=== PATIENT | male | born 1950 | race Hispanic/Latino ===

== ENCOUNTER 2023-09-14 10:40 | Emergency (ER) | payer OTHER ==
[2023-09-14] MEDS ORDERED: CEPHALEXIN 250 MG CAP ONE (11:24)
[2023-09-14] MEDS ORDERED: CEFAZOLIN SODIUM 1 GM/VIAL ONE (11:24)
[2023-09-14] MEDS ORDERED: LIDOCAINE 2% W/EPI 1:200,000 MPF 20 ML VIAL IM ONE (11:24)
[2023-09-14] MEDS ORDERED: SMZ./TMP. 800/160 MG TABLET ONE (11:24)
[2023-09-14] MEDS ORDERED: NA CHLORIDE 0.9% 1,000 ML ONE (11:25)
[2023-09-14 11:36] LABS: Absolute Eosinophils 0.1 K/uL (0-0.5); Absolute Lymphocytes (CBC) 1.7 K/uL (0.7-4.9); Absolute Monocytes 0.7 K/uL (0.1-1.3); Basophils % 0.5 % (0-1.3); Eosinophils % 0.8 % (0-4.4); Hematocrit 39.1 % (39.6-49.0); Hemoglobin 13.1 g/dL (13.6-17.9); Lymphocytes % 17.6 % (15.3-44.8); MCH 28.6 pg (27.0-35.0); MCHC 33.6 g/dL (32.0-36.0); MCV 85.2 fL (80-100); MPV 7.5 fL (7.6-11.3); Monocytes % 7.2 % (3.3-12.3); Neutrophils % 73.9 % (41.7-73.7); Platelets 181 thou/uL (152-406); RBC Red Blood Cell Count 4.59 M/uL (4.33-5.43); Red Cell Distribution Width 14.9 % (12.1-15.2)
[2023-09-14 11:41] LABS: PT Prothrombin Time 11.4 SECONDS (9.5-12.5); Protime INR 1.04
[2023-09-14 11:46] LABS: Specific Gravity 1.029 (1.005-1.030); Sqamous Epithelial <5 /HPF (None Seen); Transitional Epithelial <5 /HPF (None Seen); Urine Bacteria None Seen /HPF (<20); Urine Bilirubin NEGATIVE (Negative); Urine Blood Trace (Negative); Urine Clarity Clear (Clear); Urine Color Yellow (Yellow); Urine Culture Reflex Order NOT NEEDED; Urine Glucose NEGATIVE (Negative); Urine Ketones NEGATIVE (Negative); Urine Microscopic Reflex YN ORDER UMIC; Urine Mucus Slight /HPF (None Seen); Urine Nitrite NEGATIVE (Negative); Urine Protein 1+ (Negative); Urine Sperm Present (None Seen); Urine Urobilinogen Normal (Normal); Urine WBC <5 /HPF (<5); Urine pH 7.5 (5.0-7.0)
[2023-09-14 12:36] LABS: Sodium Level 136 mEq/L (136-145)
[2023-09-14 12:37] LABS: ALT/SGPT 29 U/L (16-61); AST/SGOT 16 U/L (15-37); BUN Blood Urea Nitrogen 18 mg/dL (7-18); Bicarbonate 29 mEq/L (21-32); Glomerular Filtration Rate 92 ml/min (=/>90); Glucose Level 108 mg/dL (74-106); Potassium 3.7 mEq/L (3.5-5.1)
[2023-09-14 12:38] LABS: Albumin 3.5 g/dL (3.4-5.0); Albumin/Globulin Ratio 0.9 (1.1-1.8); Bilirubin Direct < 0.1 mg/dL (0-0.2); Bilirubin Indirect, Calculated ND mg/dL (0.2-0.8); Bilirubin Total 0.5 mg/dL (0.2-1.0); Globulin 3.7 g/dL (2.3-3.5); Protein, Total 7.2 g/dL (6.4-8.2)
[2023-09-14 12:39] LABS: Alkaline Phosphatase 74 U/L (45-117)
[2023-09-14 12:46] LABS: Anion Gap 8.7 mEq/L (5.0-15.0)
[2023-09-14 12:47] LABS: Lipase 37 U/L (13-75); Magnesium 2.2; NT PRO-BNP 95 pg/mL (<125); Troponin High Sensitivity < 3.0 (<58.9)
--- NOTE | 2023-09-14 12:56 | RAD REPORT ---
[facility]21 [facility] CLINICAL HISTORY: COUGH COMPARISON: Chest Pa And Lat (2 Views) dated 04/23/2022 TECHNIQUE: Portable AP view of the chest. FINDINGS: Decreased inspiratory effort limits evaluation. Crowding of the central vascular markings which may relate to decreased inspiration as well. Hazy left basilar opacity with blunting of the lef t costophrenic angle. No pneumothorax or sizable effusion. The cardiomediastinal contours are unrema rkable. IMPRESSION: Hazy left basilar airspace opacity with blunting of the left costophrenic angle, which m ay relate to atelectasis or small focus of pneumonitis.
--- NOTE | 2023-09-14 13:18 | EDPHYS ---
Physician Documentation [facility] Name: Filiberto Marion Age: 72 yrs Sex: Male : 1950 Arrival Date: 09/14/2023 Time: 10:40 Bed 3 Private MD: ED Physician Donny Mitchell HPI: 09/13 11:21 This 72 yrs old Male presents to ER via EMS with complaints of Abscess. miguel angel 11:21 The patient presents with an abscess of the right gluteus katrina, The patient presents miguel angel with cellulitis of the right gluteus katrina. Description: The affected area is moderate sized, localized, erythematous. Onset: The symptoms/episode began/occurred 6 day(s) ago. Possible cause(s): unknown. Associated signs and symptoms: The patient has no apparent associated signs or symptoms. Severity of symptoms: At their worst the symptoms were moderate, in the emergency department the symptoms have resolved. The patient has not experienced similar symptoms in the past. Historical: - Allergies: 10:46 No Known Allergies; ld1 - PMHx: 10:46 Hypercholesterolemia; BPH; ld1 - Immunization history:: Adult Immunizations up to date. - Infectious Disease History:: Denies. - Social history:: Smoking status: Patient denies any tobacco usage or history of. - Family history:: not pertinent. ROS: 11:21 Constitutional: Negative for fever, chills, and weight loss, Eyes: Negative for injury, miguel angel pain, redness, and discharge, ENT: Negative for injury, pain, and discharge, Neck: Negative for injury, pain, and swelling, Cardiovascular: Negative for chest pain, palpitations, and edema, Respiratory: Negative for shortness of breath, cough, wheezing, and pleuritic chest pain, Abdomen/GI: Negative for abdominal pain, nausea, vomiting, diarrhea, and constipation, Back: Negative for injury and pain, : Negative for injury, bleeding, discharge, and swelling, Neuro: Negative for headache, weakness, numbness, tingling, and seizure, Psych: Negative for depression, anxiety, suicide ideation, homicidal ideation, and hallucinations, Allergy/Immunology: Negative for hives, rash, and allergies, Endocrine: Negative for neck swelling, polydipsia, polyuria, polyphagia, and marked weight changes, Hematologic/Lymphatic: Negative for swollen nodes, abnormal bleeding, and unusual bruising, 11:21 MS/extremity: Positive for pain, swelling, tenderness, of the right gluteus katrina, 11:21 Skin: Positive for abscess, of the buttocks, Exam: 11:21 Constitutional: This is a well developed, well nourished patient who is awake, alert, miguel angel and in no acute distress. Head/Face: Normocephalic, atraumatic. Eyes: Pupils equal round and reactive to light, extra-ocular motions intact. Lids and lashes normal. Conjunctiva and sclera are non-icteric and not injected. Cornea within normal limits. Periorbital areas with no swelling, redness, or edema. ENT: Nares patent. No nasal discharge, no septal abnormalities noted. Tympanic membranes are normal and external auditory canals are clear. Oropharynx with no redness, swelling, or masses, exudates, or evidence of obstruction, uvula midline. Mucous membranes moist. Neck: Trachea midline, no thyromegaly or masses palpated, and no cervical lymphadenopathy. Supple, full range of motion without nuchal rigidity, or vertebral point tenderness. No Meningismus. Chest/axilla: Normal chest wall appearance and motion. Nontender with no deformity. No lesions are appreciated. Cardiovascular: Regular rate and rhythm with a normal S1 and S2. No gallops, murmurs, or rubs. Normal PMI, no JVD. No pulse deficits. Respiratory: Lungs have equal breath sounds bilaterally, clear to auscultation and percussion. No rales, rhonchi or wheezes noted. No increased work of breathing, no retractions or nasal flaring. Abdomen/GI: Soft, non-tender, with normal bowel sounds. No distension or tympany. No guarding or rebound. No evidence of tenderness throughout. Back: No spinal tenderness. No costovertebral tenderness. Full range of motion. Male : Normal genitalia with no discharge or lesions. MS/ Extremity: Pulses equal, no cyanosis. Neurovascular intact. Full, normal range of motion. Neuro: Awake and alert, GCS 15, oriented to person, place, time, and situation. Cranial nerves II-XII grossly intact. Motor strength 5/5 in all extremities. Sensory grossly intact. Cerebellar exam normal. Normal gait. Psych: Awake, alert, with orientation to person, place and time. Behavior, mood, and affect are within normal limits. 11:21 Skin: abscess, that is moderate sized, of the right gluteus katrina, cellulitis, that is moderate, induration, that is moderate is noted, Vital Signs: 10:47 BP 148 / 77; Pulse 77; Resp 18; Temp 98.4(TE); Pulse Ox 96% on R/A; Weight 82.55 kg; ld1 Height 5 ft. 9 in. ; Pain 9/10; 11:37 BP 140 / 72; Pulse 72; Resp 18; Pulse Ox 97% on R/A; ld1 12:13 BP 133 / 64; Pulse 59; Resp 18; Pulse Ox 98% on R/A; ld1 13:35 BP 134 / 72; Pulse 61; Resp 18; Pulse Ox 99% on R/A; ld1 10:47 Body Mass Index 26.88 (82.55 kg, 175.26 cm) ld1 10:47 Pain Scale: Adult ld1 [place] Coma Score: 11:21 Eye Response: spontaneous(4). Motor Response: obeys commands(6). Verbal Response: miguel angel oriented(5). Total: 15. MDM: 10:48 Patient medically screened. miguel angel 11:23 Differential diagnosis: abscess, cellulitis. Data reviewed: vital signs, nurses notes, [facility] result[facility]), EKG, radiologic studies, plain films. Consideration of Admission/Observation Escalation of care including admission/observation considered. I considered the following discharge prescriptions or medication management in the emergency department Medications were administered in the Emergency Department. See MAR. Test considered but Not performed: Ultrasound NO USG ABSCESS. 09/13 11:08 Order name: Basic Metabolic Panel; Complete Time: 12:48 [facility] 09/13 11:08 Order name: CBC with Diff; Complete Time: 12:48 [facility] 09/13 11:08 Order name: LFT's; Complete Time: 12:48 [facility] 09/13 11:08 Order name: Magnesium; Complete Time: 12:48 [facility] 09/13 11:08 Order name: NT PRO-BNP; Complete Time: 12:48 [facility] 09/13 11:08 Order name: PT-INR; Complete Time: 12:48 [facility] 09/13 11:08 Order name: Troponin HS; Complete Time: 12:48 [facility] 09/13 11:08 Order name: Lipase; Complete Time: 12:48 [facility] 09/13 11:08 Order name: Urinalysis w/ reflexes; Complete Time: 12:48 [facility] 09/13 11:19 Order name: Wound Culture [facility] 09/13 11:08 Order name: XRAY Chest (1 view); Complete Time: 13:27 [facility] 09/13 11:08 Order name: Cardiac monitoring; Complete Time: 11:37 [facility] 09/13 11:08 Order name: EKG - Nurse/Tech; Complete Time: 13:26 [facility] 09/13 11:08 Order name: IV Saline Lock; Complete Time: 11:16 [facility] 09/13 11:08 Order name: Labs collected and sent; Complete Time: 11:37 [facility] 09/13 11:08 Order name: O2 Per Protocol; Complete Time: 11:16 [facility] 09/13 11:08 Order name: O2 Sat Monitoring; Complete Time: 11:16 [facility] 09/13 11:19 Order name: Dressing - Wound; Complete Time: 11:36 [facility] 09/13 11:19 Order name: Gloves, Sterile; Complete Time: 11:36 [facility] 09/13 11:19 Order name: Setup Suture Tray; Complete Time: 11:36 [facility] 09/13 13:13 Order name: Wound dressing; Complete Time: 13:26 [facility] Administered Medications: 11:36 Drug: Trimethoprim-Sulfamethoxazole PO (160 mg-800 mg (DS) 1 tablet PO once Route: PO; ld1 11:36 Drug: Cephalexin PO 500 mg PO once Route: PO; ld1 11:36 Drug: ceFAZolin IVPB 1 grams 50 ml IVPB once over 30 mins Volume: 50 ml; Route: IVPB; ld1 Infused Over: 30 mins; Site: left antecubital; 11:37 Drug: NS 0.9% IV 1000 ml IV at 125 ml/hr continuous Route: IV; Rate: 125 ml/hr; Site: ld1 left antecubital; 12:50 Drug: Lidocaine-Epinephrine Infiltration -1%: (1:100,000) 20 ml 20 ml Infiltration ld1 once; to bedside {Note: Administered by Dr. Mitchell.} Volume: 20 ml; Route: Infiltration; 13:25 Drug: Mupirocin Topical Ointment 2 % 1 application Topical once Route: Topical; Site: ld1 affected area; Disposition Summary: 09/14/23 13:18 Discharge Ordered Notes: Location: Home miguel angel Problem: new miguel angel Symptoms: have improved miguel angel Condition: Stable miguel angel Diagnosis - Cutaneous abscess of buttock miguel angel - Cellulitis of buttock miguel angel Followup: miguel angel - With: Private Physician - When: 2 - 3 days - Reason: Recheck today's complaints, Continuance of care, Re-evaluation by your physician Followup: miguel angel - With: Mikey Lorenzana MD - When: 2 - 3 days - Reason: Recheck today's complaints, Continuance of care, Re-evaluation by your physician Discharge Instructions: - Discharge Summary Sheet miguel angel - Skin Abscess miguel angel - Cellulitis, Adult miguel angel - Incision and Drainage miguel angel - Skin Abscess, [id number] miguel angel - Cellulitis, Adult, [id number] miguel angel - Incision and Drainage, Care After miguel angel Forms: - Medication Reconciliation Form [facility] - Antibiotic Education miguel angel - Prescription Opioid Use [facility] - Patient Portal Instructions [facility] - Leadership Thank You Letter [facility] Prescriptions: - Centany 2 % Topical ointment - apply 1 application TOPICAL route 3 times per day; 30 gram tube; Refills: 0, [facility] Product Selection Permitted - Cephalexin 500 mg Oral Capsule - take 1 capsule ORAL route every 6 hours for 10 days; 40 capsule; Refills: 0, [facility] Product Selection Permitted - Bactrim DS 800-160 mg Oral Tablet - take 1 tablet ORAL route every 12 hours for 10 days; 20 tablet; Refills: 0, [facility] Product Selection Permitted Signatures: Dispatcher [employer] EDDonny Godinez MD MD cha Attema, Lee, ACTIVE DIRECTORY ADMINISTRATOR-C ACTIVE DIRECTORY ADMINISTRATOR-Cla1 Yarely Dick RN RN ld1 Corrections: (The following items were deleted from the chart) 11: 11:09 BASIC METABOLIC PANEL+C.LAB.BRZ ordered. EDMS EDMS 11: 11:09 CBC+H.LAB.BRZ ordered. EDMS EDMS 11: 11:09 HEPATIC FUNCTION+C.LAB.BRZ ordered. EDMS EDMS 11: 11:09 MAGNESIUM+C.LAB.BRZ ordered. EDMS EDMS 11: 11:09 PROBNP+C.LAB.BRZ ordered. EDMS EDMS 11: 11:09 PROTIME (+INR)+COAG.LAB.BRZ ordered. EDMS EDMS 11: 11:09 Troponin High Sensitivity+C.LAB.BRZ ordered. EDMS EDMS 11:09 11:09 LIPASE+C.LAB.BRZ ordered. EDMS EDMS : 11: Urinalysis+U.LAB.BRZ ordered. EDMS EDMS
--- NOTE | 2023-09-14 13:18 | ER ---
Nurse's Notes [facility] Name: Filiberto Marion Age: 72 yrs Sex: Male : 1950 Arrival Date: 09/14/2023 Time: 10:40 Bed 3 Private MD: Diagnosis: Cutaneous abscess of buttock;Cellulitis of buttock Presentation: 09/13 10:47 Chief complaint: EMS states: toned out to patient home for abscess to buttocks X 7 ld1 days. Coronavirus screen: At this time, the client does not indicate any symptoms associated with coronavirus-19. Ebola Screen: No symptoms or risks identified at this time. Initial Sepsis Screen: Does the patient meet any 2 criteria? No. Patient's initial sepsis screen is negative. Does the patient have a suspected source of infection? No. Patient's initial sepsis screen is negative. Risk Assessment: Do you want to hurt yourself or someone else? Patient reports no desire to harm self or others. Onset of symptoms was September 14, 2023. 10:47 Method Of Arrival: EMS: [facility] ld1 10:47 Acuity: JEAN 3 ld1 Triage Assessment: 10:47 General: Appears in no apparent distress. uncomfortable, Behavior is calm, cooperative, ld1 appropriate for age. Pain: Complains of pain in buttocks Pain does not radiate. Pain currently is 9 out of 10 on a pain scale. Quality of pain is described as throbbing, Pain began suddenly, Is continuous. EENT: No signs and/or symptoms were reported regarding the EENT system. Neuro: Level of Consciousness is awake, alert, obeys commands, Oriented to person, place, time, situation. Cardiovascular: Capillary refill < 3 seconds Patient's skin is warm and dry. Respiratory: Airway is patent Respiratory effort is even, unlabored. GI: Abdomen is round non-distended. : No signs and/or symptoms were reported regarding the genitourinary system. Derm: Abscess located on buttocks Reports Denies. Musculoskeletal: No signs and/or symptoms reported regarding the musculoskeletal system. Historical: - Allergies: 10:46 No Known Allergies; ld1 - PMHx: 10:46 Hypercholesterolemia; BPH; ld1 - Immunization history:: Adult Immunizations up to date. - Infectious Disease History:: Denies. - Social history:: Smoking status: Patient denies any tobacco usage or history of. - Family history:: not pertinent. Screenin:50 [facility] ED Fall Risk Assessment (Adult) History of falling in the last 3 months, ld1 including since admission No falls in past 3 months (0 pts). Abuse screen: Denies threats or abuse. Denies injuries from another. Nutritional screening: No deficits noted. Tuberculosis screening: No symptoms or risk factors identified. Assessment: 10:50 Reassessment: See triage assessment. ld1 11:40 Reassessment: Patient appears in no apparent distress at this time. No changes from ld1 previously documented assessment. Patient and/or family updated on plan of care and expected duration. Pain level reassessed. 12:13 Reassessment: Patient appears in no apparent distress at this time. No changes from ld1 previously documented assessment. Patient and/or family updated on plan of care and expected duration. Pain level reassessed. 13:35 Reassessment: Patient appears in no apparent distress at this time. No changes from ld1 previously documented assessment. Patient and/or family updated on plan of care and expected duration. Pain level reassessed. Vital Signs: 10:47 BP 148 / 77; Pulse 77; Resp 18; Temp 98.4(TE); Pulse Ox 96% on R/A; Weight 82.55 kg; ld1 Height 5 ft. 9 in. ; Pain 9/10; 11:37 BP 140 / 72; Pulse 72; Resp 18; Pulse Ox 97% on R/A; ld1 12:13 BP 133 / 64; Pulse 59; Resp 18; Pulse Ox 98% on R/A; ld1 13:35 BP 134 / 72; Pulse 61; Resp 18; Pulse Ox 99% on R/A; ld1 10:47 Body Mass Index 26.88 (82.55 kg, 175.26 cm) ld1 10:47 Pain Scale: Adult ld1 [place] Coma Score: 11:21 Eye Response: spontaneous(4). Motor Response: obeys commands(6). Verbal Response: miguel angel oriented(5). Total: 15. ED Course: 10:46 Patient arrived in ED. ld1 10:47 Arm band placed on right wrist. ld1 10:48 Donny Mitchell MD is Attending Physician. miguel angel 10:49 Triage completed. ld1 10:50 Patient has correct armband on for positive identification. Placed in gown. Bed in low ld1 position. Call light in reach. Side rails up X2. bakery assistant on. Pulse ox on. NIBP on. Door closed. Noise minimized. Warm blanket given. 10:50 Maintain EMS IV. Dressing intact. Good blood return noted. Site clean \T\ dry. Gauge \T\ ld 1 site: 20g LAC. 10:51 Yarely Dick RN is Primary Nurse. ld1 11:37 Urinalysis w/ reflexes Sent. ld1 12:23 XRAY Chest (1 view) In Process Unspecified. EDMS 13:14 Mikey Lorenzana MD is Referral Physician. [facility] 13:36 No provider procedures requiring assistance completed. IV discontinued, intact, ld1 bleeding controlled, No redness/swelling at site. Administered Medications: 11:36 Drug: Trimethoprim-Sulfamethoxazole PO (160 mg-800 mg (DS) 1 tablet PO once Route: PO; ld1 11:36 Drug: Cephalexin PO 500 mg PO once Route: PO; ld1 11:36 Drug: ceFAZolin IVPB 1 grams 50 ml IVPB once over 30 mins Volume: 50 ml; Route: IVPB; ld1 Infused Over: 30 mins; Site: left antecubital; 11:37 Drug: NS 0.9% IV 1000 ml IV at 125 ml/hr continuous Route: IV; Rate: 125 ml/hr; Site: ld1 left antecubital; 12:50 Drug: Lidocaine-Epinephrine Infiltration -1%: (1:100,000) 20 ml 20 ml Infiltration ld1 once; to bedside {Note: Administered by Dr. Mitchell.} Volume: 20 ml; Route: Infiltration; 13:25 Drug: Mupirocin Topical Ointment 2 % 1 application Topical once Route: Topical; Site: ld1 affected area; Medication: 10:50 VIS not applicable for this client. ld1 Outcome: 13:18 Discharge ordered by . [facility] 13:36 Discharged to home ambulatory, ld1 13:36 Condition: stable 13:36 Discharge instructions given to patient, Instructed on discharge instructions, follow up and referral plans. medication usage, Demonstrated understanding of instructions, follow-up care, medications, Prescriptions given X 3, 13:36 Patient left the ED. ld1 Addendum: 09/17/2023 07:45 Addendum: Culture Results: Positive wound culture. No further action required. Bacteria e b sensitive to prescribed antibiotic. Signatures: Dispatcher [employer] Donny Hinds, Angelina Mendiola MD, cha, Lauren, RN RN ld1
[2023-09-14 13:56] VITALS: TEMP 98.4
[2023-09-14 14:18] VITALS: BP 134/72; O2SAT 99
== END 2023-09-14 13:36 | disposition home or self-care (01) ==
LOC: ER 10:40
DX: L03.317 Cellulitis of buttock (principal)
CPT/HCPCS: 87070; 85025; 81001; 80048; 36415; 83735; 87205; 85610; 80076; 87077; 87186; 84484; 83690; 83880; 71045; 96374; 99285; J7030; J0690